=== PATIENT | male | born 1990 | race Caucasian/White ===

== ENCOUNTER 2020-05-21 19:40 | Emergency (ER) | payer OTHER ==
[~2020-05-21] VITALS: Ht 188 cm; Wt 127.0 kg
[2020-05-21] MEDS ORDERED: IBUPROFEN 600 MG TAB ONE (20:24)
[2020-05-21] MEDS ORDERED: NAPROSYN500 MG PO (22:05)
[2020-05-21] MEDS ORDERED: TYLENOL # 31 EA PO (22:10)
[2020-05-21] MEDS ORDERED: CYCLOBENZAPRINE10 MG PO (22:12)
== END 2020-05-21 22:31 | disposition home or self-care (01) ==
LOC: FSED 20:39
DX: S60.222A Contusion of left hand, initial encounter (principal); S93.601A Unspecified sprain of right foot, initial encounter; V43.52XA Car driver injured in collision with other type car in traffic accident, initial encounter; Y92.488 Other paved roadways as the place of occurrence of the external cause; I10 Essential (primary) hypertension; F17.210 Nicotine dependence, cigarettes, uncomplicated
CPT/HCPCS: 99283